=== PATIENT | female | born 1995 | race Caucasian/White ===

== ENCOUNTER 2017-09-06 15:32 | Emergency (ER) | payer MEDICAID ==
[~2017-09-06] VITALS: Ht 162.6 cm; Wt 67.0 kg
[2017-09-06] MEDS ORDERED: IBUPROFEN 600MG TABLET PO ONE (19:15)
[2017-09-06 20:26] VITALS: BP 104/62
== END 2017-09-06 20:28 | disposition home or self-care (01) ==
LOC: ER 16:20
DX: S30.0XXA Contusion of lower back and pelvis, initial encounter (principal); S10.93XA Contusion of unspecified part of neck, initial encounter; V43.62XA Car passenger injured in collision with other type car in traffic accident, initial encounter; Y93.9 Activity, unspecified; Y92.410 Unspecified street and highway as the place of occurrence of the external cause
CPT/HCPCS: 72040; 81025; 99284

== ENCOUNTER 2018-01-07 23:31 | Emergency (ER) | payer SELFPAY ==
[~2018-01-07] VITALS: Ht 162.6 cm; Wt 69.1 kg
[2018-01-08] MEDS ORDERED: IBUPROFEN 600MG TABLET PO STA (02:05)
[2018-01-08 02:54] VITALS: BP 115/63
== END 2018-01-08 03:02 | disposition home or self-care (01) ==
LOC: ER 23:31
DX: J20.9 Acute bronchitis, unspecified (principal); J02.9 Acute pharyngitis, unspecified
CPT/HCPCS: 71045; 81025; 87070; 87430; 99284

== ENCOUNTER 2018-01-12 00:49 | Emergency (ER) | payer SELFPAY ==
[~2018-01-12] VITALS: Ht 162.6 cm; Wt 68.0 kg
[2018-01-12] MEDS ORDERED: ACETAMINOPHEN 325MG TABLET PO ONE (01:30)
[2018-01-12 04:25] VITALS: BP 116/65
== END 2018-01-12 04:26 | disposition home or self-care (01) ==
LOC: ER 00:49
DX: S00.81XA Abrasion of other part of head, initial encounter (principal); W22.8XXA Striking against or struck by other objects, initial encounter; Y93.89 Activity, other specified; Y92.89 Other specified places as the place of occurrence of the external cause; Y99.8 Other external cause status
CPT/HCPCS: 81025; 99284